=== PATIENT | female | born 1970 | race Caucasian/White ===

== ENCOUNTER 2025-05-01 10:13 | Emergency (ER) | payer BC, SELFPAY ==
[2025-05-01 10:16] VITALS: BP 139/76
[2025-05-01 10:17] VITALS: BP 139/76
[2025-05-01 11:05] VITALS: BMI 25.3
[2025-05-01 11:17] VITALS: BP 120/72
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
== END 2025-05-01 12:26 | disposition home or self-care (01) ==
LOC: EMR 10:13
PROVIDERS: EMERGENCY PHYSICIAN Emergency Medicine
DX: R00.2 Palpitations (principal); I10 Essential (primary) hypertension; Z56.6 Other physical and mental strain related to work; F41.9 Anxiety disorder, unspecified; F32.A Depression, unspecified; F17.200 Nicotine dependence, unspecified, uncomplicated
CPT/HCPCS: 99283; 93005